=== PATIENT | male | born 1945 | race Caucasian/White ===

== ENCOUNTER → 2022-01-27 13:09 | Outpatient (CLI) | payer MEDICARE, BC, SELFPAY ==
--- NOTE | 2022-01-27 13:12 | DI.MRI.S_ITS ---
PROCEDURE: MR PELIS WO/W CON INDICATIONS: Elevated and rising PSA TECHNIQUE: Coronal HASTE, axial T1 FSE with fat saturation, 3-plane nonbreath-hold T2 FSE. After the administration of contrast, dynamic axial, delayed axial and coronal VIBE or 2-D FLASH with fat saturation through the pelvis. Optional diffusion weighted imaging and ADC may be performed. COMPARISON: None. FINDINGS: Image quality: Diffusion weighted and dynamic contrast enhanced images are diagnostic. Prostate: Gland size is 4.7 x 3.3 x 3.7 cm; ellipsoid gland volume is 30 mL. There is asymmetric thickening of the pseudo capsule and asymmetric right-sided thickening of the anterior fibromuscular stroma at the gland base. Lesion size(s): Lesion 1: Approximately 1.1 cm in oblique transverse diameter measured in the axial plane diffusion imaging. Lesion 2: Approximately 0.8 cm transversely measured in the axial plane T2 imaging. Lesion location(s) (sector): Lesion 1: Left posterolateral peripheral zone apex to mid gland. Lesion 2: Right posteromedial peripheral zone at the mid gland to apex. Lesion description: Lesion 1: Indistinct area with non circumscribed, irregular margins. Lesion 2: Ovoid non circumscribed area with indistinct margins T2 weighted imaging (T2WI) morphology score: Lesion 1: Three Lesion 2: Three Diffusion weighted imaging (DWI) morphology score: Lesion 1: Three Lesion 2: Three Dynamic contrast enhancement (DCE): Lesion 1: Present Lesion 2: Absent Lesion PI-RADS score: Lesion 1: PI-RADS three Lesion 2: PI-RADS three Genitourinary system: The urinary bladder wall is slightly irregular with a few tiny bladder diverticula laterally. There is slight ectasia of the right distal ureter. Bowel and peritoneum: No pathologic free pelvic fluid. Inferior colon and small bowel loops are normal in caliber. Nodes and vessels: No pelvic or inguinal adenopathy by size criteria. Iliac vessels are normal in caliber. Soft tissues: Tiny right and small left fat containing inguinal hernias.. Bones: Marrow demonstrates normal overall signal, without lesions to suggest metastases. IMPRESSION: 1. Two subtle areas of possible abnormal signal in the peripheral zone prostate gland at the mid gland apex categorized as PI-RADS three based on multiparametric MR imaging. 2. Asymmetric pseudo capsule and stromal thickening towards the gland base. 3. No visible adenopathy or osseous lesions. Dictated by: Sofie López M.D. on 01/28/2022 at 8:23 Approved by: Sofie López M.D. on 01/28/2022 at 8:44
== END ==
PROVIDERS: PCP Family Medicine; Referring Provider Urology; Visit Provider Urology
DX: R97.20 Elevated prostate specific antigen [PSA] (principal)
CPT/HCPCS: 72197; A9579